=== PATIENT | male | born 1975 | race African-American/Black ===

== ENCOUNTER 2018-07-09 13:24 | Emergency (ER) | payer OTHER ==
[~2018-07-09] VITALS: Ht 149.9 cm; Wt 68.0 kg
[2018-07-09 13:25] VITALS: TEMP 98.1
[2018-07-09 14:24] VITALS: BP 109/58
== END 2018-07-09 14:37 | disposition home or self-care (01) ==
LOC: ED 13:24
PROC: 0KQ90ZZ Repair Right Lower Arm and Wrist Muscle, Open Approach (ICD-10-PCS; principal; 2018-07-09)
DX: S51.811A Laceration without foreign body of right forearm, initial encounter (principal); F10.129 Alcohol abuse with intoxication, unspecified; W25.XXXA Contact with sharp glass, initial encounter
CPT/HCPCS: 90715; 96372; 99283